=== PATIENT | male | born 1940 | race Caucasian/White ===

== ENCOUNTER → 2017-09-11 16:37 | Outpatient (CLI) | payer MEDICARE, SELFPAY ==
--- NOTE | 2017-09-11 16:43 | RAD_ITS ---
STUDY: X-RAY CHEST REASON FOR EXAM: Male, 77 years old. Cough and wheezing TECHNIQUE: Single AP portable view of the chest. COMPARISON: 12/27/2012 FINDINGS: Hypoinflated lungs with diffuse interstitial edema and perihilar vascular congestion. There is no demonstrated pleural abnormality. Sternal cerclage wires are present from a prior sternotomy. Moderate cardiomegaly. Normal mediastinum and krystal. Normal visualized pulmonary arteries. Normal visualized aortic arch and descending thoracic aorta. There are diffuse degenerative changes of the visualized thoracic spine. There is degenerative osteoarthritis of the bilateral shoulders. There is no demonstrated abnormality of the visualized soft tissue structures of the upper abdomen. RAD/Chest PA and Lateral IMPRESSION: Interstitial edema and perihilar vascular congestion. Cardiomegaly with median sternotomy wires. Electronically Signed: Luis Booker DO at 17:12 EDT Tel , Service support ,
== END ==
PROVIDERS: Family Provider Internal Medicine; PCP Internal Medicine; Visit Provider Internal Medicine
DX: R05 Cough (principal)
CPT/HCPCS: 71046

== ENCOUNTER → 2017-11-20 09:41 | Outpatient (CLI) | payer MEDICARE, SELFPAY ==
--- NOTE | 2017-11-20 | MRI_ITS ---
STUDY: MRI LUMBAR SPINE WITHOUT CONTRAST REASON FOR EXAM: Male, 77 years old. Low back pain, posterior left leg pain. TECHNIQUE: Standardized fat and water weighted pulse sequences were obtained in the sagittal and axial planes. COMPARISON: None FINDINGS: Normal lumbar lordosis. There is no substantial scoliosis. Normal conus medullaris that terminates at the T12-L1 level. There is retrolisthesis at L2-3. There is loss of disc height at L2-3 through L5-S1 and at T12-L1. Vertebral body heights are maintained. There are multilevel Modic type I and II changes. There is multilevel facet arthropathy and ligamentum flavum hypertrophy. T12/L1: There is a mild diffuse bulge larger on the right. There is impression on the ventral thecal sac and severe right without left neuroforaminal stenosis. L1/2: There is a diffuse bulge. There is no central canal stenosis. There is mild left worse than right neuroforaminal stenosis. L2/3: There posterior endplate osteophytes and a diffuse bulge larger on the left. There is moderate central canal stenosis and severe left and moderate right neuroforaminal stenosis. L3/4: There posterior endplate osteophytes and a diffuse bulge. There is borderline mild central canal stenosis and moderate bilateral neuroforaminal stenosis. L4/5: There posterior endplate osteophytes and a diffuse bulge. There is no central canal stenosis. There is moderate bilateral neuroforaminal stenosis. L5/S1: There is a diffuse bulge slightly larger on the left. There is no central canal stenosis. There is moderate bilateral neuroforaminal stenosis. Normal visualized sacral ala. Normal visualized paraspinous soft tissue structures. MRI/Spine Lumbar (Routine) IMPRESSION: Multilevel degenerative changes, as described above. T12/L1: There is a mild diffuse bulge larger on the right. There is severe right neuroforaminal stenosis. L1/2: There is a diffuse bulge. There is mild left worse than right neuroforaminal stenosis. L2/3: There posterior endplate osteophytes and a diffuse bulge larger on the left. There is moderate central canal stenosis and severe left and moderate right neuroforaminal stenosis. L3/4: There posterior endplate osteophytes and a diffuse bulge. There is borderline mild central canal stenosis and moderate bilateral neuroforaminal stenosis. L4/5: There posterior endplate osteophytes and a diffuse bulge. There is moderate bilateral neuroforaminal stenosis. L5/S1: There is a diffuse bulge slightly larger on the left. There is moderate bilateral neuroforaminal stenosis. Electronically Signed: Bing Yeboah MD at 14:01 EDT , Service support ,
--- NOTE | 2017-11-20 09:53 | MRI_ITS ---
STUDY: MRI LEFT SHOULDER REASON FOR EXAM: Left shoulder pain for 2.5 years. TECHNIQUE: Standardized fat and water weighted pulse sequences were obtained in all 3 orthogonal planes. COMPARISON: Radiographs 10/29/2014. FINDINGS: There is supraspinatus tendinosis and a small linear intrasubstance partial-thickness tear of the distal supraspinatus tendon at the greater tuberosity insertion (T2 coronal images 8, 9). Normal infraspinatus tendon. There is an undersurface partial-thickness tear of the subscapularis tendon (proton-density axial series 7 images 13-15). Normal teres minor tendon. Normal supraspinatus muscle. Normal infraspinatus muscle. Normal subscapularis muscle. There is atrophy with partial fat replacement of the posterior aspect of the teres minor muscle (T2 sagittal images 1-3). There is glenohumeral arthrosis with marginal osteophytes of the humeral head, chondral loss (T2 coronal images 6-11) and subchondral cystic change. There is a small glenohumeral joint effusion. Normal intracapsular long biceps tendon. There is fluid with septations in the bicipital tendon sheath (T2 sagittal image 19) suggestive of bicipital tenosynovitis. There is diffuse degeneration of the labrum. Normal capsulo- ligamentous complex. There is acromioclavicular arthrosis with mild hypertrophic changes (T2 sagittal image 10). There is a Type I morphology (flat undersurface), with a neutral orientation. There is a very small volume of subacromial-subdeltoid bursal fluid (T2 sagittal images 6-8). Normal visualized coracohumeral and coracoacromial ligaments. Normal deltoid muscle. Normal trapezius muscle. MRI/Upper Ext Joint Only(Routine) IMPRESSION: Undersurface partial-thickness tear of the subscapularis tendon. Small intrasubstance partial-thickness tear and tendinosis of the supraspinatus tendon. Atrophy of the teres minor muscle. 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 Bicipital tenosynovitis. Acromioclavicular arthrosis. Very mild subacromial-subdeltoid bursitis. Electronically Signed: Curtis Khan MD at 11:37 EDT Tel , Service support ,
== END ==
PROVIDERS: Family Provider Internal Medicine; PCP Internal Medicine; Visit Provider Internal Medicine
DX: M54.5 Low back pain (principal); M54.16 Radiculopathy, lumbar region; M25.512 Pain in left shoulder
CPT/HCPCS: 72148; 73221

== ENCOUNTER → 2017-11-23 14:34 | Outpatient (CLI) | payer MEDICARE, SELFPAY ==
--- NOTE | 2017-11-23 14:37 | RAD_ITS ---
STUDY: X-RAY - RIGHT ANKLE REASON FOR EXAM: Male, 77 years old. Chronic ankle pain TECHNIQUE: 3 view(s) of the ankle. COMPARISON: None. FINDINGS: Normal visualized distal tibia and fibula. Bony densities adjacent to the lateral malleolus suggests old injury. There is narrowing of the joint space with remodeling of the talar dome and adjacent tibial plafond. There is deformity of the fifth metatarsal (distal) seen only on the oblique view suggesting old fracture. The visualized subtalar, talonavicular, calcaneocuboid and tarsal articulations are normal. No demonstrated acute fracture. The soft tissue structures are unremarkable. RAD/Ankle min 3 Views IMPRESSION: 1. Severe tibiotalar joint arthrosis. 2. Suspect old avulsion fractures of the lateral ankle. Old fifth metatarsal fracture. Electronically Signed: Bill Lee MD at 8:49 EDT , Service support ,
== END ==
PROVIDERS: Family Provider Internal Medicine; PCP Internal Medicine; Visit Provider Internal Medicine
DX: M25.571 Pain in right ankle and joints of right foot (principal); G89.29 Other chronic pain
CPT/HCPCS: 73610